=== PATIENT | female | born 1945 | race Caucasian/White ===

== ENCOUNTER → 2023-08-30 | Outpatient (CLI) | payer MEDICARE, MEDICAID, SELFPAY ==
--- NOTE | 2023-08-30 13:33 | RAD_ITS ---
RAD/Cerv Spine 2 or 3 Views IMPRESSION: No acute fracture or traumatic subluxation. Degenerative changes. Electronically Signed: Toan Teran DO at 20:49 EST ,
== END | disposition home or self-care (01) ==
LOC: LAB 13:24
PROVIDERS: Referring Provider Anesthesiology Pain Medicine; Visit Provider Anesthesiology Pain Medicine
DX: M47.812 Spondylosis without myelopathy or radiculopathy, cervical region (principal)
CPT/HCPCS: 72040

== ENCOUNTER → 2023-09-27 | Outpatient (CLI) | payer MEDICARE, MEDICAID, SELFPAY ==
--- NOTE | 2023-09-27 13:19 | RAD_ITS ---
EXAM: XR THORACIC SPINE, 2 VIEWS CLINICAL INDICATION: SPINE TECHNIQUE: Frontal and lateral views of the thoracic spine. COMPARISON: No relevant prior studies available. FINDINGS: VERTEBRAE: Diffuse bridging osteophytes throughout the thoracic spine consistent with diffuse idiopathic skeletal hyperostosis. Exaggeration of the normal thoracic kyphosis. Preserved vertebral body height. No fracture. No spondylolisthesis. No significant facet arthropathy. DISC SPACES: Unremarkable. Disc spaces are maintained. TUBES, LINES AND DEVICES: Neurostimulator device within the thoracic spinal canal at the T7-T9 levels. RAD/Thoracic Spine 2 Views IMPRESSION: 1. Diffuse bridging osteophytes throughout the thoracic spine consistent with diffuse idiopathic skeletal hyperostosis. No acute abnormality. 2. Exaggeration of the normal thoracic kyphosis. 3. Neurostimulator device within the thoracic spinal canal at the T7-T9 levels. Electronically Signed: Jadon Sosa MD at 17:08 EST ,
== END | disposition home or self-care (01) ==
LOC: RAD 13:13
PROVIDERS: Visit Provider Anesthesiology Pain Medicine
DX: M41.34 Thoracogenic scoliosis, thoracic region (principal)
CPT/HCPCS: 72070

== ENCOUNTER 2024-01-13 10:44 | Day surgery (SDC) | payer MEDICARE, MEDICAID, SELFPAY ==
[2024-01-13] VITALS (10 sets, daily range): BP systolic 102–120; BP diastolic 53–76; PULSE 85–94; RESP 16–18; TEMP 36.2–36.8; O2SAT 92–100; BMI 37.0
--- NOTE | 2024-01-13 11:27 | OP.PCM_ITS ---
Report of Operation Date of Procedure: 01/13/24 Description of Surgical Findings:: REPORT OF OPERATION PREOPERATIVE DIAGNOSES: 1. Lumbar stenosis, spondylosis. 2. Chronic back pain POSTOPERATIVE DIAGNOSES: 1. Lumbar stenosis, spondylosis. 2. Chronic back pain PROCEDURE PERFORMED: 1. Explantation of spinal cord stimulator lead wire and generator STATEMENT OF MEDICAL NECESSITY: This patient is a 78-year-old female who is status post implantation of permanent spinal cord stimulator lead and generator. She presents for explantation of spinal cord stimulator lead wire and generator. The patient has opted for treatment of operative intervention, understanding the risks to include, damage to nerves, arteries and veins, possibility of continued pain, paralysis, need for additional surgery, pulmonary embolism, heart attack, stroke, or . DESCRIPTION OF PROCEDURE: The patient was identified in the preoperative holding area. There, the patient received the preoperative IV antibotics and then transferred to the operating suite. Once in the operating suite, after the appropriate amount of sedation was established, the patient was transferred to the [place] operating table in the prone position. All bony prominences were padded accordingly. The thoracolumbar spine was prepped and draped in standard surgical fashion. The scar from the prior thoracic incision centered over T9-10 in the midline was reopened and taken down to the thoracic fascia. The fascia was reopened and the lead wire and anchors were exposed. After examining the paddle lead it was determined that attempting to remove the lead would pose a significant risk so the lead wires were cut and the lead was left in place. The previous scar for the spinal cord stimulator generator located in the iliolumbar region was reopened and the battery was exposed. Both the stimulator wires and battery were then explanted. Both incisions were then irrigated and closed with #1 vicryl for the fascia, 2-0 vicryl for subcutaneous, and 2-0 nylon for skin. Sterile dressing was applied with 4 x 4, ABD, and tape. Sponge, instrument, and needle counts were correct at the end of the case. The patient was taken to PACU without incident. Surgeon: Dakotah Lunsford Type of Anesthesia: Local and MAC Estimated Blood Loss (mL): 10 cc Fluids Replaced: 800 cc Complications None Admit VTE Documentation VTE Present on Admission: No
--- NOTE | 2024-01-13 11:27 | PCM.PN.ORT ---
Subjective Subjective Seen and examined postop. Resting comfortably. Pain controlled. No complaints Physical Exam Const alert, oriented x3 and no apparent distress General Appearance: cooperative, comfortable and well kempt HEENT normocephalic and head/scalp atraumatic Eyes EOMs intact bilaterally and conjunctivae normal Neck full ROM General: normal visual inspection Chest inspection of chest normal and palpation of chest normal Resp normal respiratory effort and normal air movement Cardio regular rate, regular rhythm and peripheral pulses 2+ throughout GI soft to palpation, non-tender and non-distended Back/Spine Back/Spine Narrative: Dressings clean dry and intact Cervical Spine: cervical ROM normal Thoracic Spine / Upper Back: normal to inspection Lumbar Spine / Lower Back: normal to inspection Extremity normal to inspection, full ROM, normal capillary refill, no clubbing, cyanosis or edema and no calf tenderness Skin no rashes or lesions noted General Skin Exam: no breakdown Neuro oriented x3, CN's II-XII intact bilaterally, moves all extremities, no focal motor deficits, no sensory deficits noted and deep tendon reflexes 2+ bilaterally Motor Exam: strength 5/5 throughout and muscle tone normal throughout Assessment & Plan Assessment/Plan (1) Lumbar spondylosis: PLAN: Okay to discharge See discharge instructions Follow-up with Dr. Lunsford in 3 weeks
[2024-01-13] MEDS: Lactated Ringers 1,000 ML 15 ML IV ×2 (11:34→14:16)
[2024-01-13] MEDS: Cefazolin 2 GM in 0.9% Normal Saline (100mL Bag) 100 ML IV (12:19)
[2024-01-13 12:20] LABS: Bedside Glucose 109 mg/dL (74-106)
[2024-01-13] MEDS: Bupivacaine 0.25% 30 ML Vial (12:56)
== END 2024-01-13 16:15 | disposition home or self-care (01) ==
LOC: SDC 10:47 → AC 10:48
PROVIDERS: Visit Provider Orthopaedic Surgery
PROC: (CPT 63661; principal; 2024-01-13 12:20)
DX: Z45.42 Encounter for adjustment and management of neurostimulator (principal); J44.9 Chronic obstructive pulmonary disease, unspecified; E11.9 Type 2 diabetes mellitus without complications; M47.816 Spondylosis without myelopathy or radiculopathy, lumbar region; M48.061 Spinal stenosis, lumbar region without neurogenic claudication; M43.16 Spondylolisthesis, lumbar region; G89.29 Other chronic pain; I10 Essential (primary) hypertension; E78.00 Pure hypercholesterolemia, unspecified; E89.0 Postprocedural hypothyroidism; F32.A Depression, unspecified; F41.9 Anxiety disorder, unspecified; E66.8 Other obesity; Z68.35 Body mass index [BMI] 35.0-35.9, adult; Z79.84 Long term (current) use of oral hypoglycemic drugs; Z79.899 Other long term (current) drug therapy
CPT/HCPCS: 63661; 63688; 00300; 76000; 82962; J7120; J2405

== ENCOUNTER → 2024-05-03 | Outpatient (CLI) | payer MEDICARE, MEDICAID, SELFPAY ==
--- NOTE | 2024-05-03 13:10 | RAD_ITS ---
STUDY: X-RAY - LUMBAR SPINE REASON FOR EXAM: Female, 79 years old. M96.1 TECHNIQUE: 3 view(s) of the lumbar spine were obtained. COMPARISON: None FINDINGS: Normal lumbar lordosis. There is no substantial scoliosis. There is a normal alignment of the vertebrae. There is multilevel endplate spondylosis of the lumbar vertebrae. There is multi-level degenerative disc disease with multi-level disc space narrowing. There is multilevel facet hypertrophy. The soft tissue structures are unremarkable. RAD/Lumbar Spine 2 or 3 Views IMPRESSION: Degenerative changes of the spine, as detailed above. MRI may be useful. Electronically Signed: Navneet Randall MD at 13:55 EDT ,
== END | disposition home or self-care (01) ==
LOC: RAD 12:57
PROVIDERS: Referring Provider Anesthesiology Pain Medicine; Visit Provider Anesthesiology Pain Medicine
DX: M96.1 Postlaminectomy syndrome, not elsewhere classified (principal)
CPT/HCPCS: 72100

== ENCOUNTER → 2024-09-01 | Outpatient (CLI) | payer MEDICARE, MEDICAID, SELFPAY | END | disposition home or self-care (01) | LOC: CT 09:07 | PROVIDERS: Referring Provider Orthopaedic Surgery Orthopaedic Surgery of the Spine; Visit Provider Orthopaedic Surgery Orthopaedic Surgery of the Spine | DX: G95.9 Disease of spinal cord, unspecified (principal); R15.9 Full incontinence of feces | CPT/HCPCS: 62304; 72126; 72132; Q9965 ==